=== PATIENT | male | born 1945 | race Caucasian/White ===

== ENCOUNTER 2016-06-19 17:56 | Emergency (ER) | payer OTHER ==
--- NOTE | ~2016-06-19 | CR210 ---
[facility] A Service of [facility] RADIOLOGY TEXT RESULTS PATIENT: JENNIFER ALVARADO LOCATION: [facility] : 41 UNIT #: [id number] AGE: [address]: Zac Hernandez MD SEX: M ORDER DR: [id number] [facility] [address] [place], [place] [address] [id number] MR#: [id number] Acc #: [id number] NAME: JENNIFER ALVARADO. : 1945 SEX: M STUDY DATE/TIME: 06/19/2016 17:15 UNIT: [facility] ROOM: STUDY DESCRIPTION: CR Ribs Uni 2 View W PA Ch Lt Attending Physician: Zac Hernandez M.D. Ordering Physician: Ed Doctor [id number] [facility] Primary Care Physician: Deep Wagner M.D. MEDICAL IMAGING REPORT This report is preliminary unless electronic signature is present EXAM Left ribs and chest x-ray HISTORY Pain for 2 days since the patient fell onto his left ribs. joint terminal attack controller smoker. FINDINGS Frontal view of the chest and 3 views of the left ribs are submitted for review. Chest x-ray comparison is from 03/06/2014. Evaluation of the chest x-ray shows normal cardiac silhouette size. There is some linear atelectasis at the left base, new from previous. No congestive failure. No pleural effusion. No pneumothorax. Bones are demineralized and there is calcification at the aortic knob. No displaced left rib fracture is seen. IMPRESSION 1. Small amount of linear atelectasis left base and no pleural effusion or pneumothorax. 2. No displaced left rib fracture is seen. 3. Distortion of parenchymal architecture is consistent with a component of underlying chronic lung disease. This is not changed from 2013. Dictated by... Stacey Escamilla M.D. THIS IS AN ELECTRONICALLY VERIFIED REPORT Stacey Escamilla M.D. at 06/20/2016 3:09 PM VERNON/doug TD: 06/20/2016 12:46 [facility] A Service of [facility] RADIOLOGY TEXT RESULTS PATIENT: JENNIFER ALVARADO [id number] : [birth year] UNIT #: [id number] AGE: [address]: Zac Hernandez MD SEX: M ORDER DR: SHARRON #: [id number] MEDICAL IMAGING REPORT Page 1 of 1 COPY
[~2016-06-19 17:56] MED LIST: ATIVAN PO; AUGMENTIN PO; AUGMENTIN875 MG PO; CARAFATE1 G PO; CARBIDOPA-LEVO1 TA1 PO; CRESTOR; CYMBALTA PO; CYMBALTA30 MG PO; EFFEXOR37.5 MG PO; FLAGYL250 M1 PO; GABAPENTIN600 MG PO; KLONOPIN0.5 MG PO; LISINOPRIL PO; LORAZEPAM1 MG PO; LOSARTAN POTASS50 MG PO; MYRBETRIQ25 MG PO; NEURONTIN; NEURONTIN300 MG PO; NEXIUM; NEXIUM PO; PHENERGAN25 MG PO; PLAVIX PO; PRAVASTATIN SOD40 MG PO; PREDNISONE10 MG/DOSE PO; PROAIR HFA8.5 GM INH; PROTONIX PO; RAPAFLO8 MG PO; REGLAN; REGLAN10 MG PO; SYMBICORT INH; TESTOSTERON200 MG/ML INJ; WELCHOL625 MG PO; ZOFRAN ODT4 MG PO; [UNRECOGNIZED DRUG - OTHER]
== END 2016-06-19 18:27 | disposition home or self-care (01) ==
LOC: CED 17:56
DX: S20.219A Contusion of unspecified front wall of thorax, initial encounter (principal); F17.210 Nicotine dependence, cigarettes, uncomplicated; W18.09XA Striking against other object with subsequent fall, initial encounter; Y92.89 Other specified places as the place of occurrence of the external cause
CPT/HCPCS: 71101; 99283

== ENCOUNTER 2016-06-22 20:39 | Emergency (ER) | payer OTHER | END 2016-06-22 20:54 | disposition home or self-care (01) | LOC: CED 20:39 | DX: F41.1 Generalized anxiety disorder (principal); Z76.0 Encounter for issue of repeat prescription; E78.5 Hyperlipidemia, unspecified; J44.9 Chronic obstructive pulmonary disease, unspecified; I10 Essential (primary) hypertension; Z90.49 Acquired absence of other specified parts of digestive tract; F17.210 Nicotine dependence, cigarettes, uncomplicated | CPT/HCPCS: 99283 ==